=== PATIENT | male | born 1955 | race Caucasian/White ===

== ENCOUNTER 2019-05-12 00:52 | Emergency (ER) | payer BC ==
[~2019-05-12] VITALS: Ht 154.9 cm; Wt 103.4 kg
[2019-05-12] MEDS ORDERED: IV NORMAL SALINE 1000ML BAG 1,000 ML IV ONE (01:45)
[2019-05-12] MEDS ORDERED: fentaNYL PF VIAL 100 MCG/2 ML VIAL IV ONE (01:45)
[2019-05-12] MEDS ORDERED: ONDANSETRON PF 4 MG/2 ML VIAL. IV ONE (01:45)
[2019-05-12 01:46] LABS: BASO # 0.1 x10^3/uL (0.0-0.2); BASO % 1 % (0-3); EOS # 0.2 x10^3/uL (0.0-0.7); EOS % 2 % (0-3); HEMATOCRIT 43.1 % (39.0-53.0); HEMOGLOBIN 14.7 g/dL (13.0-17.5); LYMPH # 2.5 x10^3/uL (1.0-4.8); LYMPH % 22 % (24-48); MEAN CORPUSCULAR HEMOGLOBIN 30 pg (25-35); MEAN CORPUSCULAR HGB CONC 34 g/dL (31-37); MEAN CORPUSCULAR VOLUME 87 fL (79-100); MONO # 1.2 x10^3/uL (0.0-1.1); MONO % 11 % (0-9); NEUT # 7.1 x10^3/uL (1.8-7.7); NEUT % 64 % (31-73); PLATELET COUNT 230 x10^3/uL (140-400); RED BLOOD COUNT 4.97 x10^6/uL (4.30-5.70); RED CELL DISTRIBUTION WIDTH 12.3 % (11.5-14.5); WHITE BLOOD COUNT 11.1 x10^3/uL (4.0-11.0)
[2019-05-12 01:59] LABS: CREATININE 0.9 mg/dL (0.7-1.3); POTASSIUM 4.2 mmol/L (3.5-5.1)
[2019-05-12 02:05] LABS: ALBUMIN 3.9 g/dL (3.4-5.0); ALBUMIN/GLOBULIN RATIO 1.3 (1.0-1.7); TOTAL BILIRUBIN 0.4 mg/dL (0.2-1.0)
--- NOTE | 2019-05-12 02:30 | PHYS DOC ---
Past Medical History Past Medical History: Constipation, High Cholesterol, Hypertension Past Surgical History: No Surgical History Alcohol Use: None Drug Use: None Adult General Chief Complaint Chief Complaint: ABDOMINAL PAIN HPI HPI Patient is a 64-year-old male who presents with right upper quadrant abdominal pain. He stated it started earlier this evening. He states the pain is sharp in nature and radiates through to his back. He states that pain is caused him nausea. He states he's never had this kind of thing before. He is not sure if the pain started after eating today. He denies any fever chills or sweats.[] Review of Systems Review of Systems Constitutional: Denies fever or chills [] Eyes: Denies change in visual acuity, redness, or eye pain [] HENT: Denies nasal congestion or sore throat [] Respiratory: Denies cough or shortness of breath [] Cardiovascular: No additional information not addressed in HPI [] GI: Per history of present illness[] : Denies dysuria or hematuria [] Musculoskeletal: Denies back pain or joint pain [] Integument: Denies rash or skin lesions [] Neurologic: Denies headache, focal weakness or sensory changes [] Endocrine: Denies polyuria or polydipsia [] All other systems were reviewed and found to be within normal limits, except as documented in this note. Current Medications Current Medications Current Medications Medications (Trade) Dose Ordered Sig/Yohana Start Time Stop Time Status Last Admin Dose Admin Fentanyl Citrate (Fentanyl 2ml Vial) 50 mcg 1X ONCE 05/12/19 01:45 05/12/19 01:46 DC 05/12/19 01:57 50 MCG Info (CONTRAST GIVEN -- Rx MONITORING) 1 each PRN DAILY PRN 05/12/19 03:00 05/14/19 02:59 Iohexol (Omnipaque 300 Mg/ml) 75 ml 1X ONCE 05/12/19 03:00 05/12/19 03:01 Ondansetron HCl (Zofran) 4 mg 1X ONCE 05/12/19 01:45 05/12/19 01:46 DC 05/12/19 01:55 4 MG Sodium Chloride 1,000 ml @ 1,000 mls/hr 1X ONCE 05/12/19 01:45 05/12/19 02:44 DC 05/12/19 01:55 1,000 MLS/HR Allergies Allergies Allergies Coded Allergies Type Severity Reaction Last Updated Verified aspirin Allergy Unknown 05/12/19 Yes Physical Exam Physical Exam Constitutional: Well developed, well nourished, mild distress, non-toxic appearance. [] HENT: Normocephalic, atraumatic, bilateral external ears normal, oropharynx moist, no oral exudates, nose normal. [] Eyes: PERRLA, EOMI, conjunctiva normal, no discharge. [] Neck: Normal range of motion, no tenderness, supple, no stridor. [] Cardiovascular:Heart rate regular rhythm, no murmur [] Lungs & Thorax: Bilateral breath sounds clear to auscultation [] Abdomen: Mild tender to palp no rebound negative Portillo's. [] Skin: Warm, dry, no erythema, no rash. [] Back: No tenderness, no CVA tenderness. [] Extremities: No tenderness, no cyanosis, no clubbing, ROM intact, no edema. [] Neurologic: Alert and oriented X 3, normal motor function, normal sensory function, no focal deficits noted. [] Psychologic: Anxious[] Current Patient Data Vital Signs Vital Signs Date Time Temp Pulse Resp B/P (MAP) Pulse Ox O2 Delivery O2 Flow Rate FiO2 05/12/19 02:56 58 11 151/79 (103) 98 05/12/19 01:57 Room Air 05/12/19 01:24 97.8 97.8 Lab Values Laboratory Tests Test 05/12/19 01:35 White Blood Count 11.1 x10^3/uL (4.0-11.0) H Red Blood Count 4.97 x10^6/uL (4.30-5.70) Hemoglobin 14.7 g/dL (13.0-17.5) Hematocrit 43.1 % (39.0-53.0) Mean Corpuscular Volume 87 fL (79-100) Mean Corpuscular Hemoglobin 30 pg (25-35) Mean Corpuscular Hemoglobin Concent 34 g/dL (31-37) Red Cell Distribution Width 12.3 % (11.5-14.5) Platelet Count 230 x10^3/uL (140-400) Neutrophils (%) (Auto) 64 % (31-73) Lymphocytes (%) (Auto) 22 % (24-48) L Monocytes (%) (Auto) 11 % (0-9) H Eosinophils (%) (Auto) 2 % (0-3) Basophils (%) (Auto) 1 % (0-3) Neutrophils # (Auto) 7.1 x10^3/uL (1.8-7.7) Lymphocytes # (Auto) 2.5 x10^3/uL (1.0-4.8) Monocytes # (Auto) 1.2 x10^3/uL (0.0-1.1) H Eosinophils # (Auto) 0.2 x10^3/uL (0.0-0.7) Basophils # (Auto) 0.1 x10^3/uL (0.0-0.2) Sodium Level 138 mmol/L (136-145) Potassium Level 4.2 mmol/L (3.5-5.1) Chloride Level 101 mmol/L (98-107) Carbon Dioxide Level 25 mmol/L (21-32) Anion Gap 12 (6-14) Blood Urea Nitrogen 7 mg/dL (8-26) L Creatinine 0.9 mg/dL (0.7-1.3) Estimated GFR (Cockcroft-Gault) 85.0 BUN/Creatinine Ratio 8 (6-20) Glucose Level 111 mg/dL (70-99) H Calcium Level 9.0 mg/dL (8.5-10.1) Total Bilirubin 0.4 mg/dL (0.2-1.0) Aspartate Amino Transferase (AST) 23 U/L (15-37) Alanine Aminotransferase (ALT) 30 U/L (16-63) Alkaline Phosphatase 76 U/L (46-116) Troponin I Quantitative < 0.017 ng/mL (0.000-0.055) Total Protein 7.0 g/dL (6.4-8.2) Albumin 3.9 g/dL (3.4-5.0) Albumin/Globulin Ratio 1.3 (1.0-1.7) Lipase 187 U/L (73-393) Laboratory Tests 05/12/19 01:35 Laboratory Tests 05/12/19 01:35 EKG EKG [] Radiology/Procedures Radiology/Procedures [] Impressions: CT ABD PELV W/ IV CONTRST ONLY History: Right upper abdominal pain Comparison: None. Technique: After administration of intravenous contrast, helical CT of the abdomen and pelvis was performed from the lung bases through the ischial tuberosities. Coronal and sagittal reconstructions were obtained. 75 mL of Omnipaque 300 were used. One or more of the following dose reduction techniques were utilized: Automated exposure control (AEC), Adjustment of mA and/or kV according to patient size, Use of iterative reconstruction technique such as ASiR, CT scan done according to ALARA and image gently/image wisely Abdomen Findings: The visualized lung bases are clear. Calcified hepatic and splenic granulomas. The patient is and bilateral adrenal glands are normal. Cholelithiasis. No pericholecystic fluid or gallbladder wall thickening. Symmetric renal enhancement. Bilateral renal cysts. There is no hydronephrosis. The visualized loops of small bowel are normal. The visualized loops of large bowel are normal. There is no evidence of bowel obstruction. Appendix is normal. There is no free fluid. There is no mesenteric or retroperitoneal adenopathy. Mild aortoiliac atherosclerotic disease. Pelvis Findings: Urinary bladder is normal. No pelvic free fluid. There is no pelvic or inguinal adenopathy. There is no acute bony abnormality. Multilevel degenerative changes of the spine. IMPRESSION: No acute abdominal process. Course & Med Decision Making Course & Med Decision Making Pertinent Labs and Imaging studies reviewed. (See chart for details) [ED course: Evaluation reveals a 64-year-old male with right upper quadrant abdominal pain. He had some mild tenderness over that area but a negative Portillo's sign. His symptoms were very consistent and suspicious for biliary colic. His laboratory studies were completely normal and a CT scan did not show any evidence of an acute intra-abdominal process. It still possible that he has a dysfunctional gallbladder but will need further testing as an outpatient. I will go ahead and start him on an H2 catherine to see if that doesn't alleviate some of his symptoms. I've encouraged him to return the emergency department should symptoms recur.] Dragon Disclaimer Dragon Disclaimer This electronic medical record was generated, in whole or in part, using a voice recognition dictation system. Departure Departure Impression: Primary Impression: Biliary colic Disposition: 01 HOME, SELF-CARE Condition: STABLE Referrals: REBECA DEMPSEY (PCP) Patient Instructions: Abdominal Pain, Biliary Colic, Gastritis, Adult Additional Instructions: Follow with your primary care physician this week for recheck. Return to the emergency department with any new or concerning symptoms Scripts Ranitidine Hcl (ZANTAC) 300 Mg Tablet 1 TAB PO QHS for reflux, #90 TAB 3 Refills Prov: ROBERT PICKENS DO 05/12/19 ROBERT PICKENS DO May 12, 2019 02:30
--- NOTE | 2019-05-12 02:55 | RAD ---
CT ABD PELV W/ IV CONTRST ONLY History: Right upper abdominal pain Comparison: None. Technique: After administration of intravenous contrast, helical CT of the abdomen and pelvis was performed from the lung bases through the ischial tuberosities. Coronal and sagittal reconstructions were obtained. 75 mL of Omnipaque 300 were used. One or more of the following dose reduction techniques were utilized: Automated exposure control (AEC), Adjustment of mA and/or kV according to patient size, Use of iterative reconstruction technique such as ASiR, CT scan done according to ALARA and image gently/image wisely Abdomen Findings: The visualized lung bases are clear. Calcified hepatic and splenic granulomas. The patient is and bilateral adrenal glands are normal. Cholelithiasis. No pericholecystic fluid or gallbladder wall thickening. Symmetric renal enhancement. Bilateral renal cysts. There is no hydronephrosis. The visualized loops of small bowel are normal. The visualized loops of large bowel are normal. There is no evidence of bowel obstruction. Appendix is normal. There is no free fluid. There is no mesenteric or retroperitoneal adenopathy. Mild aortoiliac atherosclerotic disease. Pelvis Findings: Urinary bladder is normal. No pelvic free fluid. There is no pelvic or inguinal adenopathy. There is no acute bony abnormality. Multilevel degenerative changes of the spine. IMPRESSION: No acute abdominal process. Cholelithiasis. No pericholecystic fluid or gallbladder wall thickening to suggest acute cholecystitis. Electronically signed by: Valdemar Knox MD (05/12/2019 2:52 AM) [facility]
[2019-05-12 02:56] VITALS: BP 151/79
[2019-05-12] MEDS ORDERED: IOHEXOL 300 MG/ML 100ML VIAL. IV ONE (03:00)
[2019-05-12] MEDS ORDERED: CONTRAST GIVEN. MC PRN (03:00)
[2019-05-12] MEDS ORDERED: RANI300T3 PO (03:01)
[2019-05-12 03:02] LABS: BILIRUBIN,URINE NEGATIVE (NEG); CLARITY,URINE CLEAR; COLOR,URINE YELLOW; NITRITE,URINE NEGATIVE (NEG); PROTEIN,URINE NEGATIVE (NEG-TRACE); UROBILINOGEN,URINE 0.2 mg/dL (0.2 mg/dL)
[2019-05-12 03:14] LABS: BACTERIA,URINE 0 /HPF (0-FEW); RBC,URINE OCC /HPF (0-2); SQUAMOUS EPITHELIAL CELL,UR MOD /LPF
--- NOTE | 2019-05-13 07:35 | EKG ---
[facility] [address] [place] [address] Test Date: 2019-05-12 Test Time: 01:42:50 Pat Name: DOUG SIMPSON Department: Room: Gender: M Mortgage Manager: : 1955 Requested By: ROBERT PICKENS Order Number: [id number] Reading MD: Measurements Intervals [place] Rate: 63 P: 48 WI: 188 QRS: 0 QRSD: 88 T: 46 QT: 422 QTc: 435 Interpretive Statements SINUS RHYTHM LEFTWARD AXIS QRS(T) CONTOUR ABNORMALITY CONSIDER ANTEROLATERAL MYOCARDIAL DAMAGE POSSIBLY ABNORMAL ECG RI6.01 Unconfirmed report No previous ECG available for comparison
== END 2019-05-12 03:12 | disposition home or self-care (01) ==
LOC: ER 00:52
DX: K80.50 Calculus of bile duct without cholangitis or cholecystitis without obstruction (principal); E78.00 Pure hypercholesterolemia, unspecified; I10 Essential (primary) hypertension; Z88.6 Allergy status to analgesic agent
CPT/HCPCS: 36415; 74177; 80053; 81001; 83690; 84484; 85025; 93005; 96374; 96375; 99285; J2405; J3010; J7030; Q9967

== ENCOUNTER 2019-05-16 03:22 | Emergency (ER) | payer BC ==
[~2019-05-16] VITALS: Ht 177.8 cm; Wt 103.4 kg
[~2019-05-16 03:22] MED LIST: RANI300T3 PO
[2019-05-16] MEDS: HYDROmorphone 2 MG/ML VIAL IV/SQ PRN ×2 (03:56→04:21)
[2019-05-16 03:58] LABS: BASO # 0.1 x10^3/uL (0.0-0.2); BASO % 1 % (0-3); EOS # 0.2 x10^3/uL (0.0-0.7); EOS % 2 % (0-3); HEMATOCRIT 41.9 % (39.0-53.0); HEMOGLOBIN 14.5 g/dL (13.0-17.5); LYMPH # 3.1 x10^3/uL (1.0-4.8); LYMPH % 32 % (24-48); MEAN CORPUSCULAR HEMOGLOBIN 30 pg (25-35); MEAN CORPUSCULAR HGB CONC 35 g/dL (31-37); MEAN CORPUSCULAR VOLUME 86 fL (79-100); MONO # 1.2 x10^3/uL (0.0-1.1); MONO % 12 % (0-9); NEUT % 53 % (31-73); PLATELET COUNT 260 x10^3/uL (140-400); RED BLOOD COUNT 4.87 x10^6/uL (4.30-5.70); RED CELL DISTRIBUTION WIDTH 12.4 % (11.5-14.5); WHITE BLOOD COUNT 9.5 x10^3/uL (4.0-11.0)
[2019-05-16] MEDS ORDERED: IV NORMAL SALINE 1000ML BAG 1,000 ML IV SCH (04:00)
[2019-05-16] MEDS ORDERED: ONDANSETRON PF 4 MG/2 ML VIAL. IV ONE (04:00)
[2019-05-16 04:24] LABS: CALCIUM 9.4 mg/dL (8.5-10.1); GFR 75.2; POTASSIUM 4.1 mmol/L (3.5-5.1)
[2019-05-16 04:30] LABS: ALBUMIN 4.3 g/dL (3.4-5.0); ALBUMIN/GLOBULIN RATIO 1.4 (1.0-1.7); TOTAL BILIRUBIN 0.5 mg/dL (0.2-1.0); TOTAL PROTEIN 7.4 g/dL (6.4-8.2)
[2019-05-16 05:02] VITALS: BP 113/57
[2019-05-16] MEDS ORDERED: ONDA4TAB7 PO (05:12)
[2019-05-16] MEDS ORDERED: OXYC1TAB19 PO (05:12)
--- NOTE | 2019-05-16 05:13 | PHYS DOC ---
Past Medical History Past Medical History: Constipation, High Cholesterol, Hypertension Past Surgical History: No Surgical History Alcohol Use: None Drug Use: None Adult General Chief Complaint Chief Complaint: ABDOMINAL PAIN HPI HPI Patient is a 64-year-old male who presents with complaint of right upper quadrant abdominal pain that radiates into his back that started earlier this evening. Patient states that he had planned to wait until morning to see his primary care doctor but pain just got too uncomfortable. He currently rates the pain at a 6 out of 10. He reports nausea but has had no vomiting. Patient was recently diagnosed with gallstones and had been treated here in the emergency room but has not had any pain until tonight. He denies any chest pain or shortness of breath. He denies any fever.[] Review of Systems Review of Systems Constitutional: Denies fever or chills [] Respiratory: Denies cough or shortness of breath [] Cardiovascular: No additional information not addressed in HPI [] GI: Complains of abdominal pain with nausea. Denies vomiting or diarrhea [] Integument: Denies rash or skin lesions [] Neurologic: Denies headache, focal weakness or sensory changes [] All other systems were reviewed and found to be within normal limits, except as documented in this note. Current Medications Current Medications Current Medications Medications (Trade) Dose Ordered Sig/Yohana Start Time Stop Time Status Last Admin Dose Admin Hydromorphone HCl (Dilaudid) 0.5 mg PRN Q15MIN PRN 05/16/19 03:45 05/16/19 05:25 DC 05/16/19 04:21 0.5 MG Ondansetron HCl (Zofran Odt) 4 mg STK-MED ONCE 05/16/19 05:17 05/16/19 05:18 DC Ondansetron HCl (Zofran) 4 mg 1X ONCE 05/16/19 04:00 05/16/19 04:01 DC 05/16/19 03:56 4 MG Sodium Chloride 1,000 ml @ 1,000 mls/hr Q1H 05/16/19 04:00 05/16/19 04:59 DC 05/16/19 03:56 1,000 MLS/HR Allergies Allergies Allergies Coded Allergies Type Severity Reaction Last Updated Verified aspirin Allergy Unknown 05/12/19 Yes Physical Exam Physical Exam Constitutional: Well developed, well nourished, no acute distress, non-toxic appearance. [] HENT: Normocephalic, atraumatic, bilateral external ears normal, oropharynx moist, no oral exudates, nose normal. [] Eyes: PERRLA, EOMI, conjunctiva normal, no discharge. [] Neck: Normal range of motion, no tenderness, supple, no stridor. [] Cardiovascular:Heart rate regular rhythm, no murmur [] Lungs & Thorax: Bilateral breath sounds clear to auscultation [] Abdomen: Bowel sounds normal, soft with moderate right upper quadrant tenderness. [] Skin: Warm, dry, no erythema, no rash. [] Extremities: No tenderness, no cyanosis, no clubbing, ROM intact, no edema. [] Neurologic: Alert and oriented X 3, normal motor function, normal sensory function, no focal deficits noted. [] Current Patient Data Vital Signs Vital Signs Date Time Temp Pulse Resp B/P (MAP) Pulse Ox O2 Delivery O2 Flow Rate FiO2 05/16/19 05:02 54 18 113/57 (75) 97 Room Air 05/16/19 03:25 98.1 98.1 Lab Values Laboratory Tests Test 05/16/19 03:40 White Blood Count 9.5 x10^3/uL (4.0-11.0) Red Blood Count 4.87 x10^6/uL (4.30-5.70) Hemoglobin 14.5 g/dL (13.0-17.5) Hematocrit 41.9 % (39.0-53.0) Mean Corpuscular Volume 86 fL (79-100) Mean Corpuscular Hemoglobin 30 pg (25-35) Mean Corpuscular Hemoglobin Concent 35 g/dL (31-37) Red Cell Distribution Width 12.4 % (11.5-14.5) Platelet Count 260 x10^3/uL (140-400) Neutrophils (%) (Auto) 53 % (31-73) Lymphocytes (%) (Auto) 32 % (24-48) Monocytes (%) (Auto) 12 % (0-9) H Eosinophils (%) (Auto) 2 % (0-3) Basophils (%) (Auto) 1 % (0-3) Neutrophils # (Auto) 5.0 x10^3/uL (1.8-7.7) Lymphocytes # (Auto) 3.1 x10^3/uL (1.0-4.8) Monocytes # (Auto) 1.2 x10^3/uL (0.0-1.1) H Eosinophils # (Auto) 0.2 x10^3/uL (0.0-0.7) Basophils # (Auto) 0.1 x10^3/uL (0.0-0.2) Sodium Level 135 mmol/L (136-145) L Potassium Level 4.1 mmol/L (3.5-5.1) Chloride Level 98 mmol/L (98-107) Carbon Dioxide Level 27 mmol/L (21-32) Anion Gap 10 (6-14) Blood Urea Nitrogen 9 mg/dL (8-26) Creatinine 1.0 mg/dL (0.7-1.3) Estimated GFR (Cockcroft-Gault) 75.2 BUN/Creatinine Ratio 9 (6-20) Glucose Level 110 mg/dL (70-99) H Calcium Level 9.4 mg/dL (8.5-10.1) Total Bilirubin 0.5 mg/dL (0.2-1.0) Aspartate Amino Transferase (AST) 27 U/L (15-37) Alanine Aminotransferase (ALT) 31 U/L (16-63) Alkaline Phosphatase 82 U/L (46-116) Total Protein 7.4 g/dL (6.4-8.2) Albumin 4.3 g/dL (3.4-5.0) Albumin/Globulin Ratio 1.4 (1.0-1.7) Lipase 242 U/L (73-393) Laboratory Tests 05/16/19 03:40 Laboratory Tests 05/16/19 03:40 EKG EKG [] Radiology/Procedures Radiology/Procedures [] Course & Med Decision Making Course & Med Decision Making Pertinent Labs and Imaging studies reviewed. (See chart for details) [] Dragon Disclaimer Dragon Disclaimer This electronic medical record was generated, in whole or in part, using a voice recognition dictation system. Departure Departure Impression: Primary Impression: Biliary colic Disposition: 01 HOME, SELF-CARE Condition: STABLE Referrals: REBECA DEMPSEY (PCP) Patient Instructions: Biliary Colic, Cholelithiasis, HIDA (Hepatobilliary) Scan Scripts Ondansetron Hcl (ZOFRAN) 4 Mg Tablet 4 MG PO PRN TID PRN for NAUSEA, #15 nausea/vomiting Prov: NAZARIO MCGREGOR Jr. DO 05/16/19 Oxycodone/Apap 7.5-325 (PERCOCET 7.5-325 MG TABLET ) 1 Each Tablet 1 TAB PO PRN Q6HRS PRN for PAIN, #15 TAB 0 Refills Prov: NAZARIO MCGREGOR Jr. DO 05/16/19 NAZARIO MCGREGOR Jr. DO May 16, 2019 05:12
[2019-05-16] MEDS ORDERED: ONDANSETRON ODT 4 MG TAB.RAPDIS. ONE (05:17)
[2019-05-16] MEDS ORDERED: ONDANSETRON ODT 4 MG TAB.RAPDIS. PO ONE (05:30)
== END 2019-05-16 05:20 | disposition home or self-care (01) ==
LOC: ER 03:22
DX: K80.50 Calculus of bile duct without cholangitis or cholecystitis without obstruction (principal); E78.00 Pure hypercholesterolemia, unspecified; I10 Essential (primary) hypertension; Z88.6 Allergy status to analgesic agent
CPT/HCPCS: 36415; 80053; 83690; 85025; 96374; 96375; 99285; J1170; J2405; J7030; Q0162

== ENCOUNTER 2019-05-27 06:13 | Day surgery (SDC) | payer BC ==
[~2019-05-27] VITALS: Ht 177.8 cm; Wt 103.0 kg
[~2019-05-27 06:13] MED LIST changes: +CLOP75TA PO; +FAMO40TA57 PO; +LISI-130 PO; +METO-247 PO; +ONDA4TAB7 PO; +OXYC1TAB19 PO; +PSYL0.5215 PO; +SILD50TA PO; +SIMV40TA3 PO
[2019-05-27] MEDS ORDERED: ONDANSETRON PF 4 MG/2 ML VIAL. IV PRN (07:00)
[2019-05-27] MEDS ORDERED: LIDOCAINE 1% PF 2 ML VIAL. ID PRN (07:00)
[2019-05-27] MEDS ORDERED: HYDROmorphone 2 MG/ML VIAL IV PRN (07:00)
[2019-05-27] MEDS ORDERED: PROCHLORPERAZINE 10 MG/2 ML VIAL. IV PRN (07:00)
[2019-05-27] MEDS ORDERED: IV RINGERS,LACTATED 1000ML 1,000 ML IV SCH (07:00)
[2019-05-27] MEDS ORDERED: fentaNYL PF VIAL 100 MCG/2 ML VIAL IV PRN (07:00)
[2019-05-27] MEDS ORDERED: SURGICEL HEMOSTAT 4X8 EACH. ONE (07:16)
[2019-05-27] MEDS ORDERED: GLUCAGON,HUMAN RECOMBINANT 1 MG/ML VIAL. ONE (07:16)
[2019-05-27] MEDS ORDERED: IOHEXOL 300 MG/ML 50 ML VIAL. ONE (07:16)
[2019-05-27] MEDS ORDERED: SUCCINYLCHOLINE 200 MG/10 ML VIAL. ONE (07:23)
[2019-05-27] MEDS ORDERED: LIDOCAINE 2% PF 5 ML VIAL. ONE (07:23)
[2019-05-27] MEDS ORDERED: PROPOFOL 20 ML IV ONE (07:23)
[2019-05-27] MEDS ORDERED: ROCURONIUM 50 MG/5 ML VIAL. ONE (07:24)
[2019-05-27] MEDS ORDERED: fentaNYL PF VIAL 100 MCG/2 ML VIAL ONE (07:24)
[2019-05-27] MEDS ORDERED: DEXAMETHASONE SOD PHOS 4 MG/ML VIAL ONE (07:54)
[2019-05-27] MEDS ORDERED: DESFLURANE 31 TO 60 MINUTES IH ONE (07:54)
[2019-05-27] MEDS ORDERED: BUPIVACAINE-EPI 0.5%-1:200000 MPF 30 ML VIAL. INJ ONE (08:00)
[2019-05-27] MEDS ORDERED: ceFAZolin 2GM PREMIX 2 GM/50 ML BAG IV ONE (08:00)
[2019-05-27] MEDS ORDERED: ONDANSETRON PF 4 MG/2 ML VIAL. ONE (08:04)
[2019-05-27] MEDS ORDERED: GLYCOPYRROLATE 1 MG/5 ML VIAL. ONE (08:04)
[2019-05-27] MEDS ORDERED: NEOSTIGMINE METHYLSULFATE 5 MG/5 ML SYRINGE. ONE (08:04)
--- NOTE | 2019-05-27 08:33 | RAD ---
C-arm fluoroscopy with fluoroscopic spot views Clinical indications: Cholecystectomy. Intraoperative cholangiogram. Total fluoroscopic time: 0.17 minutes. Total fluoroscopic spot views: 2. IMPRESSION: Fluoroscopic spot views demonstrate opacification of a nondilated extrahepatic biliary tree with free flow of contrast material into the duodenum. No common bile duct stone or stricture is evident. See operative report for full details. Electronically signed by: Sam Mendes MD (05/27/2019 8:30 AM) [id number]
--- NOTE | 2019-05-27 08:38 | DISCH ---
DISCHARGE INSTRUCTIONS Condition on Discharge Condition on Discharge: Stable Activity After Discharge Activity Instructions for Disc: Activity as tolerated, Avoid exertion Lifting Instructions after Dis: No heavy lifting Driving Instructions after Dis: Do not drive (3-4 days) Diet after Discharge Diet after Discharge: Regular Wound Incision Care Wound/Incision Care: Ice to area for comfort Other wound/incision instructi: january shower Monday Follow-Up Follow up with: Barrington in office 05/30 RUPERTO GARCIA MD May 27, 2019 08:38
--- NOTE | 2019-05-27 08:41 | PDOC ---
BRIEF OPERATIVE NOTE Date: May 27, 2019 Pre-Op Diagnosis symptomatic cholelithiasis Post-Op Diagnosis same Procedure Performed l/s cholecystectomy with cholangiograms Surgeon Barrington Flight Hostess Ivon RYAN Anesthesia Type: General Blood Loss 10cc IV Fluid 800cc Specimens Obtained GB Findings supple GB, normal grams, some topographic change liver Complications none RUPERTO GARCIA MD May 27, 2019 08:41
[2019-05-27] MEDS ORDERED: oxyCODONE/APAP 7.5/325 1 TAB TABLET PO ONE (09:00)
[2019-05-27] MEDS: fentaNYL PF VIAL 100 MCG/2 ML VIAL IV PRN ×2 (09:02→09:10)
[2019-05-27] MEDS: MORPHINE SULFATE 2 MG/ML VIAL. IV PRN ×2 (09:03→09:11)
--- NOTE | 2019-05-27 09:24 | OP ---
DATE OF SURGERY: 05/27/2019 PREOPERATIVE DIAGNOSIS: Symptomatic cholelithiasis. POSTOPERATIVE DIAGNOSIS: Symptomatic cholelithiasis. PROCEDURE: Laparoscopic cholecystectomy with cholangiogram. SURGEON: Dr. Garcia. ANESTHESIA: General endotracheal. RESEARCH AND DEVELOPMENT TESTER: SHELBY Lopez. INTRAVENOUS FLUIDS: 800. ESTIMATED BLOOD LOSS: 10 mL. FINDINGS: The liver showed some fibrotic changes, there were some omental adhesions in the left lower quadrant of the abdomen, no other abnormalities seen on laparoscopic inspection. DESCRIPTION OF PROCEDURE: The patient brought to the operating suite, given a general endotracheal anesthetic and the abdomen prepped and draped in usual sterile fashion. A supraumbilical incision was infiltrated with local anesthetic, incised and a 5 mm Visiport used to safely gain access into the abdominal cavity. Pneumoperitoneum established. Camera inserted. Inspection carried out with results as noted above. With the bed in reverse Trendelenburg rolled to the left, the epigastric, midclavicular, and lateral ports were placed under direct vision. The gallbladder was retracted superolaterally and omental adhesions carefully taken down with cautery and blunt dissection, avoiding injury to the adjacent bowel. The cystic duct was identified as was the cystic artery. The duct was clipped on the gallbladder side. Cholangiograms were made. These were unremarkable. In light of this, the catheter was removed. The cystic duct was clipped x 3 and divided, taking care to avoid injury or compromise of the common duct. The cystic artery was clipped x 2 and divided. The gallbladder freed from the bed with cautery dissection. A posterior vessel encountered snf up the fossa was clipped and divided. Gallbladder placed in an EndoCatch bag. Hemostasis obtained in the fossa with cautery and a small piece of Surgicel. A 19-Vietnamese round Ryan drain was brought through the epigastric port out the lateral port, sewn to the skin with a silk stitch and left in the subhepatic space for postoperative drainage. Table returned to level. Gallbladder delivered through the epigastric incision. Epigastric incision closed with interrupted 0 Vicryl suture. Intra-abdominal pressure decreased to 6 cm of water. No bleeding from the epigastric closure or from the midclavicular port site after its removal or from the drain site. Abdomen decompressed, camera slowly removed, no bleeding seen. Skin incision was closed with subcuticular 4-0 Monocryl. Steri-Strips and sterile dressings applied. The patient was awakened from his anesthetic and taken to the recovery room in satisfactory condition. RUPERTO GARCIA MD DR: IDANIA/galilea JOB#: [id number] / [id number]
[2019-05-27 09:35] VITALS: BP 109/71
--- NOTE | 2019-05-28 18:06 | PATHOLOGY ---
[facility] Accession Number: [id number] . 01 Material submitted: . gallbladder - GALLBLADDER . 01 Clinical history: . Symptomatic cholelithiasis . 02 Diagnosis: Gallbladder, laparoscopic cholecystectomy: - Cholelithiasis. - Chronic cholecystitis with focally increased eosinophils. (JPM:coffee bar attendant; 05/28/2019) R 05/28/2019 1429 Local . 02 Comment: There is no evidence of malignancy. (JPM:coffee bar attendant; 05/28/2019) . 02 Electronically signed: . Emanuel Adair MD, Pathologist NPI- [id number] . 01 Gross description: . The specimen is received in formalin labeled "Anzek, Villalobos, gallbladder" and consists of an intact green wrinkled gallbladder measuring 10.3 cm in length and up to 3.3 cm in diameter. The gallbladder is partially encased with yellow adipose tissue. The margin is inked black. Opening reveals a lumen filled with dark green gallbladder sludge and multiple spiculated black calculi measuring 4.0 x 2.3 cm in aggregate. The mucosa is green and velvety with an average wall thickness of 0.1 cm. No masses are identified. Podiatric Surgeon sections are submitted in A1. (SDY; 05/27/2019) SYU/SYU 05/27/2019 1700 Local . 02 Pathologist provided ICD-10: K80.10 . 02 CPT . 216389 Specimen Comment: A courtesy copy of this report has been sent to Specimen Comment: [phone], . Specimen Comment: Report sent to / DR DEMPSEY Performed at: [address], [place], [place] [id number] MD Vincent Gifford MD Phone: [phone] Performed at: [address] [id number] MD Emanuel Adair MD Phone: [phone]
== END 2019-05-27 10:15 | disposition home or self-care (01) ==
LOC: SURG 06:13
PROVIDERS: ATTEND Surgery
DX: K80.10 Calculus of gallbladder with chronic cholecystitis without obstruction (principal)
CPT/HCPCS: 47563; 74300; A7015; J0330; J0696; J1100; J2001; J2270; J2405; J2704; J2710; J3010; J3490; J7030; Q9967; 88304; J1610